=== PATIENT | male | born 1995 | race Caucasian/White ===

== ENCOUNTER 2025-03-05 14:24 | Inpatient (IN) | payer BC ==
[2025-03-05] MEDS ORDERED: Iopamidol-370 76% 500 ML MDV (1 ML CHARGE) ONE (14:59)
[2025-03-05 16:03] LABS: Bilirubin, Total 1.3 mg/dL (0.3-1.2)
[2025-03-05 16:04] LABS: Albumin 5.3 g/dL (3.1-4.5); Calcium 10.4 mg/dL (7.8-10.44); Chloride 91 mmol/L (98-107); Potassium 3.6 mmol/L (3.5-5.1); Sodium 121 mmol/L (136-145)
[2025-03-05] MEDS ORDERED: Ondansetron PF 4 MG/2 ML Vial ONE (16:22)
[2025-03-05 16:51] LABS: Lipase 1408 U/L (8-78)
[2025-03-05 16:54] LABS: Carbon Dioxide Less than 8 mmol/L (22-29)
[2025-03-05 16:57] LABS: BUN (Urea Nitrogen) 6 mg/dL (8.9-20.6); Calc. Creatinine Clearance 0 mL/min (70-130); Globulin 4.8 g/dL (2.4-3.5); Glucose 349 mg/dL (70-105)
[2025-03-05 16:58] LABS: ALT (SGPT) 66 U/L (Less than 45); AST (SGOT) 36 U/L (11-34); Alkaline Phosphatase 55 U/L (40-110)
[2025-03-05 17:01] LABS: Bacteria/HPF None Seen HPF (None Seen); CAUTI Indications for Culture Acute Hematuria; Glucose, Urine (Dipstick) Greater than 1000 mg/dL (Negative); Leukocyte Negative Leu/uL (Negative); Protein, Urine (Dipstick) 50 mg/dL (Neg-Trace); RBC/HPF 0-3 HPF (0-3); Specific Gravity, Urine 1.040 (1.002-1.036); WBC/HPF None Seen HPF (0-3)
[2025-03-05 17:16] LABS: Urine Culture Reflex No No
[2025-03-05] MEDS ORDERED: INSULIN REGULAR IN 0.9 % NACL 100 ML ONE (17:20)
[2025-03-05 18:12] LABS: Cocaine Metabolite Screen Negative (Negative); THC/Cannabinoid Screen Negative (Negative); Tricyclic Screen Negative (Negative)
[2025-03-05 18:13] LABS: Actual Bicarbonate (HCO3v) 17.3 mEq/L (22-28); Base Excess -8.3 mEq/L (-2.0 to +3.0); Calcium, Ionized (venous) 0.98 mmol/L (1.16-1.32); Chloride (VBG) 103 mmol/L (98-106); Hematocrit-VBG 49 % (42.0-52.0); Hemoglobin (Hb) 16.6 g/dL (13.2-17.3); Potassium (VBG) 4.95 mmol/L (3.70-5.30); Sodium 138 mmol/L (133-146)
[2025-03-05] MEDS ORDERED: NS 0.9% w/ 20 MEQ KCL 1,000 ML ONE ×3 (18:32→20:28)
[2025-03-05 18:51] LABS: Plasma Cells 0 % (0-0); Platelet Adequacy Comment Appears Adequate; Polychromasia SLIGHT = 2-3 cells (100X) (0-2/hpf)
[2025-03-05 18:51] LABS: Acetaminophen Less than 10 mcg/mL (Less than 10)
[2025-03-05 19:18] LABS: Magnesium 1.6 mg/dL (1.6-2.6)
[2025-03-05] MEDS ORDERED: Electrolyte Replacement Protocol 1 EACH IVPB SCH (19:53)
[2025-03-05] MEDS ORDERED: NS 0.9% w/ 20 MEQ KCL 1,000 ML IV PRN ×2 (19:53)
[2025-03-05] MEDS ORDERED: Dextrose 50% Abboject 50 ML SYRINGE SLOW IVP PRN (19:53)
[2025-03-05] MEDS ORDERED: Ondansetron PF 4 MG/2 ML Vial IVP PRN (19:55)
[2025-03-05] MEDS ORDERED: Calcium Carbonate 500 MG ChewTAB PO PRN (19:55)
[2025-03-05 20:37] LABS: Hematocrit 47.9 % (42.0-52.0); Hemoglobin 15.0 g/dL (14.0-18.0); Mean Corpuscular Hemoglobin 27.5 pg (27.0-31.0); Mean Corpuscular Volume 87.9 fL (78.0-98.0); Red Blood Cell (RBC) Count 5.45 mill/uL (4.70-6.10); White Blood Cell (WBC) Count 17.95 10x3/uL (4.8-10.8)
[2025-03-05 20:38] LABS: Platelet Count 254 10x3/uL (130-400)
[2025-03-05 21:42] LABS: Anion Gap 20 mmol/L (10-20); BUN (Urea Nitrogen) Less than 4 mg/dL (8.9-20.6); Calc. Creatinine Clearance 0 mL/min (70-130); Calcium 8.6 mg/dL (7.8-10.44); Carbon Dioxide 14 mmol/L (22-29); Chloride 98 mmol/L (98-107); Glucose 226 mg/dL (70-105); Potassium 4.6 mmol/L (3.5-5.1); Sodium 128 mmol/L (136-145)
[2025-03-05] MEDS: Magnesium 2 GM/50 ML(in water) 2 GM in Premix 1 BAG IVPB SCH (21:57)
[2025-03-05] MEDS: D5 1/2 NS w/20 mEq KCL 1,000 ML IV PRN (21:58)
[2025-03-05 22:20] LABS: ALT (SGPT) 50 U/L (Less than 45); AST (SGOT) 27 U/L (11-34); Albumin 3.9 g/dL (3.1-4.5); Alkaline Phosphatase 38 U/L (40-110); Anion Gap 24 mmol/L (10-20); BUN (Urea Nitrogen) 4 mg/dL (8.9-20.6); Bilirubin, Total 0.5 mg/dL (0.3-1.2); Calc. Creatinine Clearance 0 mL/min (70-130); Calcium 8.0 mg/dL (7.8-10.44); Carbon Dioxide 13 mmol/L (22-29); Chloride 102 mmol/L (98-107); Globulin 3.9 g/dL (2.4-3.5); Glucose 223 mg/dL (70-105); Potassium 4.0 mmol/L (3.5-5.1); Sodium 135 mmol/L (136-145)
[2025-03-05] MEDS: HYDROmorphone 0.5 MG/0.5 ML SYRINGE SLOW IVP SCH (22:46)
[2025-03-05 23:08] LABS: Glucose 213 mg/dL (70-105)
[2025-03-06 00:13] LABS: Glucose 231 mg/dL (70-105)
[2025-03-06 02:21] LABS: Anion Gap 13 mmol/L (10-20); BUN (Urea Nitrogen) Less than 4 mg/dL (8.9-20.6); Calc. Creatinine Clearance 245 mL/min (70-130); Calcium 7.8 mg/dL (7.8-10.44); Carbon Dioxide 19 mmol/L (22-29); Chloride 101 mmol/L (98-107); Glucose 248 mg/dL (70-105); Potassium 3.8 mmol/L (3.5-5.1); Sodium 129 mmol/L (136-145)
[2025-03-06 03:58] LABS: Magnesium 2.0 mg/dL (1.6-2.6)
[2025-03-06] MEDS: Acetaminophen 325 MG TAB PO PRN (04:00)
[2025-03-06 04:21] LABS: Glucose 236 mg/dL (70-105)
[2025-03-06 05:31] LABS: Anion Gap 9 mmol/L (10-20); BUN (Urea Nitrogen) Less than 4 mg/dL (8.9-20.6); Calc. Creatinine Clearance 241 mL/min (70-130); Calcium 7.6 mg/dL (7.8-10.44); Carbon Dioxide 19 mmol/L (22-29); Chloride 107 mmol/L (98-107); Glucose 258 mg/dL (70-105); Potassium 3.7 mmol/L (3.5-5.1); Sodium 131 mmol/L (136-145)
[2025-03-06 06:15] LABS: Hematocrit 42.3 % (42.0-52.0); Hemoglobin 14.9 g/dL (14.0-18.0); Mean Corpuscular Hemoglobin 30.7 pg (27.0-31.0); Mean Corpuscular Volume 87.0 fL (78.0-98.0); Platelet Count 238 10x3/uL (130-400); Red Blood Cell (RBC) Count 4.86 mill/uL (4.70-6.10); White Blood Cell (WBC) Count 9.13 10x3/uL (4.8-10.8)
[2025-03-06 06:47] LABS: Plasma Cells 0 % (0-0)
[2025-03-06 07:04] LABS: Glucose 249 mg/dL (70-105)
[2025-03-06] MEDS: INSULIN REGULAR IN 0.9 % NACL 100 ML IVPB SCH (07:24)
[2025-03-06] MEDS ORDERED: HumaLOG 300 UNITS/3 ML VIAL SC PRN ×2 (08:12)
[2025-03-06] MEDS: Magnesium 2 GM/50 ML(in water) 2 GM in Premix 1 BAG IVPB SCH (08:20)
[2025-03-06] MEDS ORDERED: Insulin Glargine 30 UNITS/0.3 ML VIAL SC SCH (09:00)
[2025-03-06 09:38] LABS: Triglycerides 2605 mg/dL (Less than 150)
[2025-03-06] MEDS: Ketorolac Tromethamine 30 MG (1 mL) VIAL IVP SCH (11:03)
[2025-03-06] MEDS: Pantoprazole 40 MG VIAL IVP SCH (11:04)
[2025-03-06 11:19] LABS: Glucose 261 mg/dL (70-105)
[2025-03-06] MEDS: HYDROcodone/Acetaminophen 5/325 mg Tablet PO SCH (11:49)
[2025-03-06 14:52] LABS: Glucose 292 mg/dL (70-105)
[2025-03-06 17:05] LABS: Glucose 298 mg/dL (70-105)
[2025-03-06 18:23] LABS: Glucose 278 mg/dL (70-105)
[2025-03-06 20:17] LABS: Glucose 267 mg/dL (70-105)
[2025-03-07 01:28] LABS: Chloride 105 mmol/L (98-107); Sodium 127 mmol/L (136-145)
[2025-03-07 01:28] LABS: Glucose 242 mg/dL (70-105)
[2025-03-07 01:29] LABS: Calcium 7.3 mg/dL (7.8-10.44); Glucose 252 mg/dL (70-105)
[2025-03-07 01:31] LABS: Anion Gap 11 mmol/L (10-20); Carbon Dioxide 16 mmol/L (22-29)
[2025-03-07 01:33] LABS: BUN (Urea Nitrogen) 6 mg/dL (8.9-20.6); Calc. Creatinine Clearance 233 mL/min (70-130)
[2025-03-07 01:38] LABS: Potassium 5.3 mmol/L (3.5-5.1)
[2025-03-07 02:25] LABS: Glucose 238 mg/dL (70-105)
[2025-03-07 05:06] LABS: Hematocrit 47.4 % (42.0-52.0); Hemoglobin 15.7 g/dL (14.0-18.0); Mean Corpuscular Hemoglobin 30.2 pg (27.0-31.0); Mean Corpuscular Volume 91.2 fL (78.0-98.0); Platelet Count 161 10x3/uL (130-400); Red Blood Cell (RBC) Count 5.20 mill/uL (4.70-6.10); White Blood Cell (WBC) Count 5.89 10x3/uL (4.8-10.8)
[2025-03-07 05:25] LABS: Anion Gap 10 mmol/L (10-20); BUN (Urea Nitrogen) 6 mg/dL (8.9-20.6); Calc. Creatinine Clearance 181 mL/min (70-130); Calcium 7.6 mg/dL (7.8-10.44); Carbon Dioxide 21 mmol/L (22-29); Chloride 102 mmol/L (98-107); Glucose 213 mg/dL (70-105); Potassium 5.2 mmol/L (3.5-5.1); Sodium 128 mmol/L (136-145)
[2025-03-07 06:04] LABS: Actual Bicarbonate (HCO3v) 17.8 mEq/L (22-28); Base Excess -6.3 mEq/L (-2.0 to +3.0); Calcium, Ionized (venous) 1.01 mmol/L (1.16-1.32); Chloride (VBG) 102 mmol/L (98-106); Hematocrit-VBG 47 % (42.0-52.0); Hemoglobin (Hb) 15.9 g/dL (13.2-17.3); Potassium (VBG) 4.66 mmol/L (3.70-5.30); Sodium 129 mmol/L (133-146)
[2025-03-07 06:20] LABS: Platelet Adequacy Comment Platelets Normal; RBC Morphology Within Normal Limits; Smudge Cells 20.2 %
[2025-03-07] MEDS: Pantoprazole 40 MG VIAL IVP SCH (09:30)
[2025-03-07] MEDS: Insulin Glargine 30 UNITS/0.3 ML VIAL SC SCH (09:56)
[2025-03-07] MEDS: Enoxaparin 40 MG (0.4 mL) SYRINGE SC SCH (10:52)
[2025-03-07] MEDS: Insulin Regular 100 units/100 ml in NS IVPB SCH (15:58)
[2025-03-08 04:55] LABS: Hematocrit 42.1 % (42.0-52.0); Hemoglobin 13.9 g/dL (14.0-18.0); Mean Corpuscular Hemoglobin 30.0 pg (27.0-31.0); Mean Corpuscular Volume 90.7 fL (78.0-98.0); Platelet Count 165 10x3/uL (130-400); Red Blood Cell (RBC) Count 4.64 mill/uL (4.70-6.10); White Blood Cell (WBC) Count 6.64 10x3/uL (4.8-10.8)
[2025-03-08 05:07] LABS: Anion Gap 10 mmol/L (10-20); BUN (Urea Nitrogen) 8 mg/dL (8.9-20.6); Calc. Creatinine Clearance 190 mL/min (70-130); Calcium 8.2 mg/dL (7.8-10.44); Carbon Dioxide 22 mmol/L (22-29); Chloride 97 mmol/L (98-107); Glucose 166 mg/dL (70-105); Potassium 4.0 mmol/L (3.5-5.1); Sodium 125 mmol/L (136-145)
[2025-03-08 05:34] LABS: Platelet Adequacy Comment Platelets Normal; RBC Morphology Within Normal Limits; Smudge Cells 18.6 %
[2025-03-08] MEDS: Enoxaparin 40 MG (0.4 mL) SYRINGE SC SCH (08:00)
[2025-03-08] MEDS: Insulin Regular 100 units/100 ml in NS IVPB SCH (20:12)
[2025-03-09 03:55] LABS: #Basophils Less than 0.03 10x3/uL (0.0-0.2); #Eosinophils 0.03 10x3/uL (0.0-0.7); #Monocytes 0.53 10x3/uL (0.11-0.59); #Neutrophils 5.30 10x3/uL (1.40-6.50); %Basophils 0.3 % (0.0-1.0); %Eosinophils 0.4 % (0.0-10.0); %Lymphocytes 16.5 % (21.0-51.0); %Monocytes 7.5 % (0.0-10.0); %Neutrophils 74.9 % (42.0-75.0); Hematocrit 33.2 % (42.0-52.0); Hemoglobin 11.3 g/dL (14.0-18.0); Mean Corpuscular Hemoglobin 30.2 pg (27.0-31.0); Mean Corpuscular Volume 88.8 fL (78.0-98.0); Platelet Count 195 10x3/uL (130-400); Red Blood Cell (RBC) Count 3.74 mill/uL (4.70-6.10); White Blood Cell (WBC) Count 7.08 10x3/uL (4.8-10.8)
[2025-03-09 04:02] LABS: Anion Gap 9 mmol/L (10-20); BUN (Urea Nitrogen) 5 mg/dL (8.9-20.6); Calc. Creatinine Clearance 266 mL/min (70-130); Calcium 8.0 mg/dL (7.8-10.44); Carbon Dioxide 23 mmol/L (22-29); Chloride 102 mmol/L (98-107); Glucose 106 mg/dL (70-105); Potassium 3.1 mmol/L (3.5-5.1); Sodium 131 mmol/L (136-145)
[2025-03-09] MEDS ORDERED: Glucagon 1 MG/ML KIT IM PRN (04:14)
[2025-03-09] MEDS: Furosemide 40 MG (4 mL) VIAL SLOW IVP SCH (08:43)
[2025-03-09 12:54] LABS: Potassium 3.7 mmol/L (3.5-5.1)
[2025-03-09 19:21] VITALS: BMI 32.1
[2025-03-09] MEDS: Vancomycin (BATCH) 2.5 GM in Premix 1 BAG IVPB SCH (21:15)
[2025-03-09] MEDS: Vancomycin 2.5 GM in Sodium Chloride 0.9% 500 ML IVPB SCH (22:38)
[2025-03-10 05:15] LABS: #Basophils 0.03 10x3/uL (0.0-0.2); #Eosinophils 0.06 10x3/uL (0.0-0.7); #Monocytes 0.90 10x3/uL (0.11-0.59); #Neutrophils 4.53 10x3/uL (1.40-6.50); %Basophils 0.4 % (0.0-1.0); %Eosinophils 0.8 % (0.0-10.0); %Lymphocytes 23.1 % (21.0-51.0); %Monocytes 12.2 % (0.0-10.0); %Neutrophils 61.6 % (42.0-75.0); Hematocrit 31.3 % (42.0-52.0); Hemoglobin 10.4 g/dL (14.0-18.0); Mean Corpuscular Hemoglobin 30.1 pg (27.0-31.0); Mean Corpuscular Volume 90.5 fL (78.0-98.0); Platelet Count 197 10x3/uL (130-400); Red Blood Cell (RBC) Count 3.46 mill/uL (4.70-6.10); White Blood Cell (WBC) Count 7.36 10x3/uL (4.8-10.8)
[2025-03-10 05:26] LABS: Anion Gap 15 mmol/L (10-20); BUN (Urea Nitrogen) 10 mg/dL (8.9-20.6); Calc. Creatinine Clearance 245 mL/min (70-130); Calcium 8.0 mg/dL (7.8-10.44); Carbon Dioxide 20 mmol/L (22-29); Chloride 98 mmol/L (98-107); Glucose 193 mg/dL (70-105); Potassium 3.3 mmol/L (3.5-5.1); Sodium 130 mmol/L (136-145)
[2025-03-10 05:49] LABS: Vancomycin, Random 9.1 ug/mL (See Comment)
[2025-03-10] MEDS: Vancomycin 1.5 GM / NS 500 ML VIAL-2-BAG IVPB SCH (06:20)
[2025-03-10] MEDS ORDERED: Iopamidol-370 76% 500 ML MDV (1 ML CHARGE) ONE (10:51)
[2025-03-10 11:50] LABS: Free T4 (Free Thyroxine) 0.78 ng/dL (0.70-1.48); Thyroid Stimulating Hormone 4.4228 uIU/mL (0.35-4.94)
[2025-03-10] MEDS: VANCOMYCIN 1.75 GM/350 ML Premix BAG IVPB SCH (15:30)
[2025-03-11 05:33] LABS: Hematocrit 29.0 % (42.0-52.0); Hemoglobin 9.7 g/dL (14.0-18.0); Mean Corpuscular Hemoglobin 30.2 pg (27.0-31.0); Mean Corpuscular Volume 90.3 fL (78.0-98.0); Platelet Count 237 10x3/uL (130-400); Red Blood Cell (RBC) Count 3.21 mill/uL (4.70-6.10); White Blood Cell (WBC) Count 9.01 10x3/uL (4.8-10.8)
[2025-03-11 05:49] LABS: Vancomycin, Random 11.7 ug/mL (See Comment)
[2025-03-11 05:50] LABS: Anion Gap 12 mmol/L (10-20); BUN (Urea Nitrogen) 7 mg/dL (8.9-20.6); Calc. Creatinine Clearance 234 mL/min (70-130); Calcium 8.2 mg/dL (7.8-10.44); Carbon Dioxide 23 mmol/L (22-29); Chloride 99 mmol/L (98-107); Glucose 196 mg/dL (70-105); Potassium 3.2 mmol/L (3.5-5.1); Sodium 131 mmol/L (136-145)
[2025-03-11 06:03] LABS: Platelet Adequacy Comment Platelets Normal; Polychromasia SLIGHT = 2-3 cells HPF (0-2)
[2025-03-11] MEDS: Insulin Glargine 30 UNITS/0.3 ML VIAL SC SCH (08:49)
[2025-03-12] MEDS: Acetaminophen 325 MG TAB PO SCH (00:37)
[2025-03-12] MEDS: Melatonin 3 MG TAB PO PRN (00:37)
[2025-03-12] MEDS: Ibuprofen 200 MG TAB PO SCH (00:38)
[2025-03-12 05:42] LABS: Anion Gap 14 mmol/L (10-20); BUN (Urea Nitrogen) 6 mg/dL (8.9-20.6); Calc. Creatinine Clearance 264 mL/min (70-130); Calcium 8.4 mg/dL (7.8-10.44); Carbon Dioxide 23 mmol/L (22-29); Chloride 101 mmol/L (98-107); Glucose 145 mg/dL (70-105); Potassium 3.0 mmol/L (3.5-5.1); Sodium 135 mmol/L (136-145)
[2025-03-12 06:05] LABS: Hematocrit 28.2 % (42.0-52.0); Hemoglobin 9.4 g/dL (14.0-18.0); Mean Corpuscular Hemoglobin 30.3 pg (27.0-31.0); Mean Corpuscular Volume 91.0 fL (78.0-98.0); Platelet Count 287 10x3/uL (130-400); Red Blood Cell (RBC) Count 3.10 mill/uL (4.70-6.10); White Blood Cell (WBC) Count 9.79 10x3/uL (4.8-10.8)
[2025-03-12 06:45] LABS: Plasma Cells 3 % (0-0); Platelet Adequacy Comment Platelets Normal; RBC Morphology Within Normal Limits; Smudge Cells 10.7 %
[2025-03-12 09:51] VITALS: BMI 32.1
[2025-03-12] MEDS: Insulin Glargine 30 UNITS/0.3 ML VIAL SC SCH (11:01)
[2025-03-13 05:22] LABS: Hematocrit 30.8 % (42.0-52.0); Hemoglobin 10.3 g/dL (14.0-18.0); Mean Corpuscular Hemoglobin 29.8 pg (27.0-31.0); Mean Corpuscular Volume 89.0 fL (78.0-98.0); Platelet Count 394 10x3/uL (130-400); Red Blood Cell (RBC) Count 3.46 mill/uL (4.70-6.10); White Blood Cell (WBC) Count 12.24 10x3/uL (4.8-10.8)
[2025-03-13 05:41] LABS: Anion Gap 13 mmol/L (10-20); BUN (Urea Nitrogen) 7 mg/dL (8.9-20.6); Calc. Creatinine Clearance 225 mL/min (70-130); Calcium 8.4 mg/dL (7.8-10.44); Carbon Dioxide 25 mmol/L (22-29); Chloride 99 mmol/L (98-107); Glucose 167 mg/dL (70-105); Potassium 3.2 mmol/L (3.5-5.1); Sodium 134 mmol/L (136-145)
[2025-03-13 06:02] LABS: Anisocytosis SLIGHT = 6-15 cells HPF (0-5); Nucleated RBC (Manual Ct) 1 % (0); Platelet Adequacy Comment Platelets Normal; Polychromasia SLIGHT = 2-3 cells HPF (0-2)
[2025-03-13] MEDS ORDERED: Iopamidol-370 76% 500 ML MDV (1 ML CHARGE) ONE (10:34)
[2025-03-14 05:09] LABS: #Basophils 0.04 10x3/uL (0.0-0.2); #Eosinophils 0.10 10x3/uL (0.0-0.7); #Monocytes 0.60 10x3/uL (0.11-0.59); #Neutrophils 8.32 10x3/uL (1.40-6.50); %Basophils 0.4 % (0.0-1.0); %Eosinophils 0.9 % (0.0-10.0); %Lymphocytes 15.4 % (21.0-51.0); %Monocytes 5.3 % (0.0-10.0); %Neutrophils 74.0 % (42.0-75.0); Hematocrit 28.7 % (42.0-52.0); Hemoglobin 9.8 g/dL (14.0-18.0); Mean Corpuscular Hemoglobin 30.5 pg (27.0-31.0); Mean Corpuscular Volume 89.4 fL (78.0-98.0); Platelet Count 396 10x3/uL (130-400); Red Blood Cell (RBC) Count 3.21 mill/uL (4.70-6.10); White Blood Cell (WBC) Count 11.24 10x3/uL (4.8-10.8)
[2025-03-14 05:30] LABS: ALT (SGPT) 20 U/L (Less than 45); AST (SGOT) 24 U/L (11-34); Albumin 2.1 g/dL (3.1-4.5); Alkaline Phosphatase 57 U/L (40-110); Anion Gap 13 mmol/L (10-20); BUN (Urea Nitrogen) 5 mg/dL (8.9-20.6); Bilirubin, Total 0.5 mg/dL (0.3-1.2); Calc. Creatinine Clearance 231 mL/min (70-130); Calcium 8.4 mg/dL (7.8-10.44); Carbon Dioxide 24 mmol/L (22-29); Chloride 101 mmol/L (98-107); Globulin 3.9 g/dL (2.4-3.5); Glucose 173 mg/dL (70-105); Potassium 3.4 mmol/L (3.5-5.1); Sodium 135 mmol/L (136-145)
[2025-03-15 05:09] LABS: #Basophils 0.04 10x3/uL (0.0-0.2); #Eosinophils 0.09 10x3/uL (0.0-0.7); #Monocytes 0.65 10x3/uL (0.11-0.59); #Neutrophils 8.82 10x3/uL (1.40-6.50); %Basophils 0.3 % (0.0-1.0); %Eosinophils 0.8 % (0.0-10.0); %Lymphocytes 14.4 % (21.0-51.0); %Monocytes 5.7 % (0.0-10.0); %Neutrophils 76.8 % (42.0-75.0); Hematocrit 31.4 % (42.0-52.0); Hemoglobin 10.1 g/dL (14.0-18.0); Mean Corpuscular Hemoglobin 29.6 pg (27.0-31.0); Mean Corpuscular Volume 92.1 fL (78.0-98.0); Platelet Count 445 10x3/uL (130-400); Red Blood Cell (RBC) Count 3.41 mill/uL (4.70-6.10); White Blood Cell (WBC) Count 11.48 10x3/uL (4.8-10.8)
[2025-03-15 05:29] LABS: Anion Gap 12 mmol/L (10-20); BUN (Urea Nitrogen) 8 mg/dL (8.9-20.6); Calc. Creatinine Clearance 221 mL/min (70-130); Calcium 8.3 mg/dL (7.8-10.44); Carbon Dioxide 25 mmol/L (22-29); Chloride 99 mmol/L (98-107); Glucose 136 mg/dL (70-105); Potassium 3.8 mmol/L (3.5-5.1); Sodium 132 mmol/L (136-145)
[2025-03-15 08:03] VITALS: BP 124/65; TEMP 98
== END 2025-03-15 13:10 | disposition home or self-care (01) | DRG 438 ==
LOC: ERS 14:24 → IMCU/EMU 19:41 → OBS 03-09 17:22
PROVIDERS: ADMIT Student in an Organized Health Care Education/Training Program; ATTEND Hospitalist
DX: K85.80 Other acute pancreatitis without necrosis or infection (principal); E11.10 Type 2 diabetes mellitus with ketoacidosis without coma; E87.1 Hypo-osmolality and hyponatremia; B17.9 Acute viral hepatitis, unspecified; Z88.1 Allergy status to other antibiotic agents; Z98.890 Other specified postprocedural states; E83.42 Hypomagnesemia; R16.0 Hepatomegaly, not elsewhere classified; K76.0 Fatty (change of) liver, not elsewhere classified; R74.01 Elevation of levels of liver transaminase levels; R00.0 Tachycardia, unspecified; E78.1 Pure hyperglyceridemia; R50.9 Fever, unspecified; E87.6 Hypokalemia
CPT/HCPCS: 36415; 36416; 71045; 74177; 76705; 80048; 80053; 80202; 80306; 80307; 81001; 82010; 82550; 82805; 83036; 83519; 83605; 83690; 83735; 84100; 84439; 84443; 84478; 84484; 84681; 85025; 86341; 87040; 87428; 93005; 93970; 96361; 96365; 96366; 96375; 96376; J0692; J1171; J1650; J1815; J1885; J1940; J2470; J3373; J3375; J3475; J3480; J7030; J7042; Q9967